=== PATIENT | female | born 1975 | race Caucasian/White ===

== ENCOUNTER 2018-12-04 20:38 | Observation (INO) | payer OTHER ==
[~2018-12-04] VITALS: Ht 157.5 cm; Wt 81.1 kg
[~2018-12-04 20:38] MED LIST: ALBU90OI INH; AMOCLA875 PO; AMOX500 PO; ARIP10; ATOM10 PO; Bactrim Ds Tab1 EACH PO; CLIN300 PO; CYCL10 PO; ESCI10 PO; GABA400 PO; HYDACE5 PO; Keflex500 MG PO; LISI5 PO; MELO7.5 PO; METO5A PO; METPRE4DP PO; Norco 5-325 Ta1 EACH PO; OXYACE5T PO; OXYACE7.5T PO; PENVK500 PO; PRED20 PO; PRODEXEL PO; RANI150 PO; RXOXYACE PO; SERT50 PO; TRAM50 PO; Ultram50 MG PO; Veetids 500500 MG PO; Zithromax250 MG PO
[2018-12-04] MEDS ORDERED: GABA300 PO (21:04)
--- NOTE | 2018-12-05 00:30 | NUR ---
ASSUMED CARE REPORT TAKEN FROM ED RN. PT TO ROOM AND WAS ABLE TO STAND FROM STRETCHER TO BED W/O ASSIST. PT REPORTS FEELING BETTER "JUST TIRED". REPS EVEN UNLABORED ON RA W/ SATS >95%. SLIGHT EDEMA NOTED TO PT MOUTH AND TONGUE. PT REPORTS EDEMA HAS IMPROVED AND PT HAS NO DIFFICULTIES SWALLOWING OR BREATHING. DENIES PAIN. DENIES OTHER NEEDS. CALL LIGHT IN REACH, PT CALLS APPROPRIATELY.
--- NOTE | 2018-12-05 06:08 | NUR ---
SHIFT SUMMARY PT RESTING IN ROOM COMFORTABLY AT THIS TIME. NO ACUTE CHANGES IN STATUS OVERNIGHT. PT SLEPT WELL T/O NIGHT, NO FURTHER C/O OF SWELLING OR IRRITATION. RESP REMAINED EVEN AND UNLABORED ON RA W/ SATS >95%. DENIES CP, DENIES SOB. DENIES OTHER NEEDS AT THIS TIME. CALL LIGHT IN REACH. PT CALLS APPROPRIATELYY.
--- NOTE | 2018-12-05 07:46 | NUR ---
0700: Care assumed, assessment completed. Pt sitting up in bed watching TV, denies SOB, chest pain, difficulty breathing, itching or rash, reports mild swelling of tongue and lips remains. Mild, non-occlusive swelling noted to lips and tongue, LS CTA, HRR, no rash, hives, or redness to skin. Pt alert and oriented x4, denies needs. RT at bedside. 0740: Dr. Adhikari at bedside to assess. Pt instructed by doctor to not use listerine or listerine products, pt agrees and verbalizes understanding. Breakfast tray given.
[2018-12-05] MEDS ORDERED: ALBU90OI INH (08:17)
--- NOTE | 2018-12-05 10:04 | NUR ---
0950: IV dc'd with tip intact, pressure dressing applied. Pt dc to home with dc instructions, Rx's sent to [facility], pt verbalizes understanding. Pt denies SOB or difficulty breathing, no wheezing noted. Tongue and lip swelling are minimal. Gait steady upon discharge, pt to f/u with pcp this week.
== END 2018-12-05 09:50 | disposition home or self-care (01) ==
LOC: ER 20:38 → ICUW 20:39 → ER 23:57 → ICUE 12-05
PROVIDERS: ADMIT Hospitalist
DX: T88.6XXA Anaphylactic reaction due to adverse effect of correct drug or medicament properly administered, initial encounter (principal); T49.6X5A Adverse effect of otorhinolaryngological drugs and preparations, initial encounter; I10 Essential (primary) hypertension; E87.6 Hypokalemia; M54.9 Dorsalgia, unspecified; G89.29 Other chronic pain; F17.210 Nicotine dependence, cigarettes, uncomplicated; Z79.899 Other long term (current) drug therapy; Z90.49 Acquired absence of other specified parts of digestive tract
CPT/HCPCS: 96372-59; 96374; 96375; 99285-25; A9270; G0378; J0171; J1200; J2930; J7512; Q0163

== ENCOUNTER 2018-12-24 18:46 | Emergency (ER) | payer OTHER ==
[~2018-12-24] VITALS: Ht 157.5 cm; Wt 83.9 kg
[~2018-12-24 18:46] MED LIST changes: +GABA300 PO
[2018-12-24] MEDS ORDERED: CYCL10 PO (19:02)
[2018-12-24] MEDS ORDERED: Robaxin-750750 MG PO (19:18)
== END 2018-12-24 19:24 | disposition home or self-care (01) ==
LOC: ER 18:46
DX: M54.2 Cervicalgia (principal); M54.6 Pain in thoracic spine; V49.9XXA Car occupant (driver) (passenger) injured in unspecified traffic accident, initial encounter; Z88.8 Allergy status to other drugs, medicaments and biological substances; Z79.899 Other long term (current) drug therapy; J45.909 Unspecified asthma, uncomplicated; F17.210 Nicotine dependence, cigarettes, uncomplicated
CPT/HCPCS: 96372; 99283; J3301

== ENCOUNTER 2018-12-27 16:09 | Emergency (ER) | payer OTHER ==
[~2018-12-27] VITALS: Ht 157.5 cm; Wt 83.9 kg
[~2018-12-27 16:09] MED LIST changes: +Robaxin-750750 MG PO
== END 2018-12-27 18:23 | disposition home or self-care (01) ==
LOC: ER 16:09
DX: T88.6XXA Anaphylactic reaction due to adverse effect of correct drug or medicament properly administered, initial encounter (principal); T39.315A Adverse effect of propionic acid derivatives, initial encounter; F17.210 Nicotine dependence, cigarettes, uncomplicated; J45.909 Unspecified asthma, uncomplicated
CPT/HCPCS: 96372-59; 96374; 96375; 99283-25; J0171; J2930

== ENCOUNTER 2019-02-21 21:41 | Emergency (ER) | payer OTHER ==
[~2019-02-21] VITALS: Ht 157.5 cm; Wt 83.9 kg
[2019-02-21] MEDS ORDERED: PSEU120ER PO (22:55)
== END 2019-02-21 23:33 | disposition home or self-care (01) ==
LOC: ER 21:41
DX: M79.672 Pain in left foot (principal); M79.671 Pain in right foot; T75.00XA Unspecified effects of lightning, initial encounter; F43.10 Post-traumatic stress disorder, unspecified; Z88.8 Allergy status to other drugs, medicaments and biological substances; J45.909 Unspecified asthma, uncomplicated; M54.2 Cervicalgia; G89.29 Other chronic pain; F17.210 Nicotine dependence, cigarettes, uncomplicated
CPT/HCPCS: 99282; A9270

== ENCOUNTER 2019-03-27 02:12 | Emergency (ER) | payer OTHER ==
[~2019-03-27] VITALS: Ht 157.5 cm; Wt 83.9 kg
[~2019-03-27 02:12] MED LIST changes: +PSEU120ER PO
== END 2019-03-27 04:28 | disposition home or self-care (01) ==
LOC: ER 02:12
DX: K08.89 Other specified disorders of teeth and supporting structures (principal); Z87.891 Personal history of nicotine dependence; Z88.8 Allergy status to other drugs, medicaments and biological substances
CPT/HCPCS: 99282; J1885

== ENCOUNTER 2019-05-05 17:45 | Emergency (ER) | payer OTHER ==
[~2019-05-05] VITALS: Ht 157.5 cm; Wt 86.6 kg
[2019-05-05] MEDS ORDERED: Zovirax800 MG PO (18:50)
[2019-05-05] MEDS ORDERED: LIDO700A20 TOP (18:50)
[2019-05-05] MEDS ORDERED: Percocet 5-3251 EACH PO (18:50)
[2019-05-06] MEDS ORDERED: Percocet 5-3251 EACH PO (09:13)
== END 2019-05-06 19:23 | disposition home or self-care (01) ==
LOC: ER 17:45
DX: M27.3 Alveolitis of jaws (principal); B02.9 Zoster without complications; J45.909 Unspecified asthma, uncomplicated; Z87.891 Personal history of nicotine dependence
CPT/HCPCS: 96372; 99282-25; J2270

== ENCOUNTER 2019-09-03 20:42 | Emergency (ER) | payer OTHER ==
[~2019-09-03] VITALS: Ht 157.5 cm; Wt 86.2 kg
[~2019-09-03 20:42] MED LIST changes: +LIDO700A20 TOP; +Percocet 5-3251 EACH PO; +Zovirax800 MG PO
[2019-09-03 21:11] LABS: BASOPHILS ABSOLUTE AUTO 0.06 K/mm3 (0.00-0.23); BASOPHILS PERCENT AUTO 1 % (0-2); EOSINOPHILS PERCENT AUTO 2 % (0-6); Hematocrit 40.6 % (33.0-51.0); Hemoglobin 13.6 g/dL (11.5-16.0); IMMATURE GRAN ABSOLUTE AUTO 0.01 K/mm3 (0.00-0.10); IMMATURE GRAN PERCENT AUTO 0 % (0-1); LYMPHOCYTES ABSOLUTE AUTO 2.55 K/mm3 (0.84-5.20); LYMPHOCYTES PERCENT AUTO 42 % (21-46); MONOCYTES ABSOLUTE AUTO 0.66 K/mm3 (0.16-1.47); MONOCYTES PERCENT AUTO 11 % (4-13); Mean Corpuscular HGB 30.1 pg (26.0-34.0); Mean Corpuscular HGB Conc 33.5 g/dL (31.5-36.5); Mean Corpuscular Volume 90 fL (80-100); Mean Platelet Volume 10.3 fL (9.1-12.4); NEUTROPHILS PERCENT AUTO 44 % (41-73); Platelet Count 317 K/mm3 (150-400); RDW Standard Deviation 39.2 fL (35.1-46.3); Red Blood Cell Count 4.52 M/mm3 (3.80-5.20); White Blood Cell Count 6.08 K/mm3 (4.00-11.30)
[2019-09-03 21:31] LABS: Alanine Aminotransfer (ALT/SGP 35 U/L (12-78); Albumin, Blood 3.9 g/dL (3.4-5.0); Albumin/Globulin Ratio 1.1 (0.8-1.8); Alk Phos 91 U/L (50-136); Anion Gap 4 mmol/L (6-16); Aspartate Aminotrans (AST/SGOT 23 U/L (12-37); Bilirubin, Total 0.4 mg/dL (0.1-1.0); Blood Urea Nitrogen 8 mg/dL (8-24); Bun/Creatinine Ratio 13.9 (12.0-20.0); CO2, Blood 28 mmol/L (21-32); Calcium, Blood 8.7 mg/dL (8.5-10.1); Chloride, Blood 108 mmol/L (98-108); Creatinine, Blood 0.57 mg/dL (0.40-1.00); Globulin, Blood 3.5 g/dL (2.2-4.0); Glomerular Filtration Rate >60 (60-); Glucose, Blood 69 mg/dL (70-99); Potassium, Blood 3.4 mmol/L (3.5-5.5); Sodium, Blood 140 mmol/L (136-145); Total Protein, Blood 7.4 g/dL (6.4-8.2)
[2019-09-03] MEDS ORDERED: ONDA4ODT SL (22:28)
[2019-09-03] MEDS ORDERED: ACETAMINOPHEN500 MG PO (22:28)
== END 2019-09-03 22:39 | disposition home or self-care (01) ==
LOC: ER 20:42
PROVIDERS: Nurse Practitioner
DX: R51 Headache (principal); I10 Essential (primary) hypertension; J45.909 Unspecified asthma, uncomplicated; M54.2 Cervicalgia; M54.9 Dorsalgia, unspecified; G89.29 Other chronic pain; Z79.899 Other long term (current) drug therapy; Z87.891 Personal history of nicotine dependence
CPT/HCPCS: 36415; 80053; 85025; 96361; 96374; 96375; 99284-25; A9270-GY; J1200; J2405; J2765; J7030

== ENCOUNTER → 2021-11-02 | Outpatient (CLI) | payer OTHER ==
[~2021-11-02] MED LIST changes: +ACETAMINOPHEN500 MG PO; +ONDA4ODT SL; +Robaxin750 MG PO; +Voltaren100 GM TOP
[2021-11-04 16:07] LABS: HPV 16 Negative (Negative); HPV 18 Negative (Negative); HPV OTHER HR TYPES Negative (Negative)
== END | disposition home or self-care (01) ==
LOC: LAB SHORT 15:50
PROVIDERS: Registered Nurse
DX: Z12.4 Encounter for screening for malignant neoplasm of cervix (principal)
CPT/HCPCS: 87624; G0123

== ENCOUNTER 2022-03-22 20:33 | Emergency (ER) | payer OTHER ==
[~2022-03-22] VITALS: Ht 157.5 cm; Wt 78.5 kg
== END 2022-03-22 22:37 | disposition home or self-care (01) ==
LOC: ER 20:33
DX: S20.212A Contusion of left front wall of thorax, initial encounter (principal); X58.XXXA Exposure to other specified factors, initial encounter; Z88.6 Allergy status to analgesic agent; Z79.899 Other long term (current) drug therapy; I10 Essential (primary) hypertension; J45.909 Unspecified asthma, uncomplicated; Z87.891 Personal history of nicotine dependence
CPT/HCPCS: 71100; 99283-25

== ENCOUNTER → 2025-06-06 | Outpatient (CLI) | payer OTHER ==
[~2025-06-06] MED LIST changes: +LOSA50 PO
[2025-06-06 15:56] LABS: Candida Group, PCR NOT DETECTED (NOT DETECT); Candida glabrata-krusei, PCR NOT DETECTED (NOT DETECT)
[2025-06-06 15:58] LABS: Bacterial Vaginosis PCR Positive (NEGATIVE)
== END ==
LOC: LAB 07:40 → LAB SHORT 07:40
DX: N94.89 Other specified conditions associated with female genital organs and menstrual cycle (principal)
CPT/HCPCS: 81515